=== PATIENT | male | born 1965 | race African-American/Black ===

== ENCOUNTER 2019-12-23 23:16 | Emergency (ER) | payer MEDICAID ==
[~2019-12-23] VITALS: Ht 180.3 cm; Wt 91.0 kg
[2019-12-24] MEDS ORDERED: IBUPROFEN 600MG TABLET PO STA (00:11)
[2019-12-24 00:22] LABS: BASOPHILS % 0.6 % (0.0-2.0); EOSINOPHILS % 1.3 % (0.0-5.0); HEMATOCRIT. 40.2 % (42.0-52.0); HEMOGLOBIN. 13.4 g/dL (14.0-18.0); MEAN CORPUSCULAR HEMOGLOBIN 28.7 pg (28.0-32.0); MONOCYTES % 6.3 % (2.0-8.0); NEUTROPHILS % 76.8 % (40.0-76.0); PLATELET 291 x1000/uL (130-400); RED BLOOD CELL COUNT 4.68 mill/uL (4.7-6.1); RED CELL DISTRIBUTION WIDTH 13.7 % (11.6-14.6)
[2019-12-24 00:29] LABS: CHLORIDE 108 mEq/L (98-107)
[2019-12-24 02:27] LABS: CLARITY URINE CLOUDY (CLEAR); COLOR URINE DARK YELLOW (YELLOW); KETONES URINE TRACE (NEGATIVE); LEUKOCYTE ESTERASE URINE NEGATIVE (NEGATIVE); NITRITE URINE NEGATIVE (NEGATIVE); OCCULT BLOOD URINE NEGATIVE (NEGATIVE); PROTEIN URINE 2+ (NEGATIVE); SPECIFIC GRAVITY URINE 1.029 (1.005-1.030)
[2019-12-24 07:30] VITALS: BP 138/85
== END 2019-12-24 09:50 | disposition home or self-care (01) ==
LOC: ER 23:59
DX: R42 Dizziness and giddiness (principal); M79.671 Pain in right foot; Z59.0 Homelessness; I10 Essential (primary) hypertension
CPT/HCPCS: 36415; 80048; 81003; 85025; 99283

== ENCOUNTER 2024-03-13 06:17 | Inpatient (IN) | payer MEDICAID ==
[~2024-03-13] VITALS: Ht 180.3 cm; Wt 106.6 kg
[2024-03-13 06:28] VITALS: O2SAT 96
[2024-03-13] MEDS ORDERED: SODIUM CHLORIDE 0.9% (SEPSIS BOLUS) IV ONE (10:15)
[2024-03-13 10:43] LABS: HEMOGLOBIN. 11.5 g/dL (14.0-18.0); MEAN CORPUSCULAR HGB CONC 32.9 g/dL (31.0-37.0); MEAN CORPUSCULAR VOLUME 88.3 fL (80.0-94.0); MEAN PLATELET VOLUME 6.2 fl (7.4-10.4); PLATELET 318 x1000/uL (130-400); RED BLOOD CELL COUNT 3.96 mill/uL (4.7-6.1); RED CELL DISTRIBUTION WIDTH 13.1 % (11.6-14.6); WHITE BLOOD COUNT 15.2 x1000/uL (4.5-11.0)
[2024-03-13 10:44] LABS: DIFFERENTIAL COMMENT 1
[2024-03-13 10:51] LABS: PROTHROMBIN TIME 10.9 sec (9.6-11.0)
[2024-03-13] MEDS: SODIUM CHLORIDE 0.9% 3,600 ML IV SCH (11:04)
[2024-03-13] MEDS: PIPERACILLIN/TAZO 3.375G/50ML 50 ML IV NR (11:04)
[2024-03-13] MEDS: VANCOMYCIN 1G PREMIX 200 ML IV NR (11:04)
[2024-03-13 11:10] LABS: CHLORIDE 88 mEq/L (98-107); POTASSIUM 4.6 mEq/L (3.5-5.1); SODIUM 121 mEq/L (136-145)
[2024-03-13] MEDS: MORPHINE SULFATE 4 MG/ML INJ (FOR IV/IM USE) IV ONE (11:10)
[2024-03-13 11:11] LABS: CALCIUM 8.9 mg/dL (8.7-10.4); CARBON DIOXIDE 23 mEq/L (21-32)
[2024-03-13 11:16] LABS: CREATININE 0.7 mg/dL (0.6-1.3); GLUCOSE 119 mg/dL (70-105); UREA NITROGEN BLOOD 8 mg/dL (9-23)
[2024-03-13 11:18] LABS: ALANINE AMINOTRANSFERASE 56 IU/L (10-49); ALBUMIN 3.7 g/dL (3.2-4.8); ASPARTATE AMINOTRANSFERASE 108 IU/L (<34); BILIRUBIN DIRECT 0.3 mg/dL (<=3.0); BILIRUBIN TOTAL 0.8 mg/dL (0.1-1.0); LACTIC ACID 2.6 mmol/L (0.4-2.0); PROTEIN TOTAL 6.9 g/dL (6.0-8.3)
[2024-03-13 12:40] LABS: PLATELET ESTIMATE NORMAL
[2024-03-13] MEDS: IOHEXOL-300 100 ML BOTTLE ONE (15:24)
[2024-03-13 17:17] VITALS: BP 129/90; PULSE 75; RESP 18; TEMP 37.1964
[2024-03-13] MEDS ORDERED: NALOXONE HCL 0.4MG/ML VIAL IV PRN (17:30)
[2024-03-13] MEDS: PIPERACILLIN/TAZO 3.375G/50ML 50 ML IV SCH (17:44)
[2024-03-13] MEDS: HYDROCODONE/ACETAMINOPHEN 5/325MG TABLET PO PRN (17:44)
[2024-03-13 18:00] VITALS: BP 129/90; PULSE 75; RESP 20; TEMP 36.9474; O2SAT 98
[2024-03-13 20:00] VITALS: BP 124/81; PULSE 105; RESP 18; TEMP 36.16956; O2SAT 96
[2024-03-13] MEDS: VANCOMYCIN 1.25GM/250ML IV SCH (20:28)
[2024-03-13] MEDS: MORPHINE SULFATE 2 MG/ML INJ (NOT FOR IM USE) IV PRN (20:44)
[2024-03-13 21:08] LABS: BASOPHILS % 0.3 % (0.0-2.0); EOSINOPHILS % 0.3 % (0.0-5.0); HEMATOCRIT. 31.9 % (42.0-52.0); HEMOGLOBIN. 10.6 g/dL (14.0-18.0); LYMPHOCYTES % 5.5 % (20.0-50.0); MEAN CORPUSCULAR HEMOGLOBIN 29.5 pg (28.0-32.0); MEAN CORPUSCULAR HGB CONC 33.4 g/dL (31.0-37.0); MEAN CORPUSCULAR VOLUME 88.4 fL (80.0-94.0); MEAN PLATELET VOLUME 6.6 fl (7.4-10.4); MONOCYTES % 12.7 % (2.0-8.0); NEUTROPHILS % 81.2 % (40.0-76.0); PLATELET 304 x1000/uL (130-400); RED BLOOD CELL COUNT 3.61 mill/uL (4.7-6.1); RED CELL DISTRIBUTION WIDTH 12.8 % (11.6-14.6); WHITE BLOOD COUNT 15.5 x1000/uL (4.5-11.0)
[2024-03-13 21:14] LABS: DIFFERENTIAL COMMENT 1
[2024-03-13 21:15] LABS: CHLORIDE 92 mEq/L (98-107); POTASSIUM 4.1 mEq/L (3.5-5.1); SODIUM 124 mEq/L (136-145)
[2024-03-13 21:16] LABS: CALCIUM 8.7 mg/dL (8.7-10.4); CARBON DIOXIDE 26 mEq/L (21-32)
[2024-03-13 21:21] LABS: CREATININE 0.9 mg/dL (0.6-1.3); GLUCOSE 131 mg/dL (70-105); UREA NITROGEN BLOOD 8 mg/dL (9-23)
[2024-03-14] MEDS: IOHEXOL-300 100 ML BOTTLE ONE (02:24)
[2024-03-14 04:00] VITALS: BP 151/70; PULSE 84; RESP 17; TEMP 36.114; O2SAT 92
[2024-03-14 05:54] VITALS: BP 133/80
[2024-03-14 08:00] VITALS: BP 132/73; PULSE 110; RESP 18; TEMP 37.28076; O2SAT 95
[2024-03-14] MEDS: ENOXAPARIN 30MG/0.3ML SYR SUBCUT SCH (09:05)
[2024-03-14 12:00] VITALS: BP 145/66; PULSE 107; RESP 18; TEMP 36.78072; O2SAT 97
[2024-03-14] MEDS: VANCOMYCIN 1.5GM/250ML 250 ML IV SCH (12:03)
[2024-03-14] MEDS: PANTOT AC/MIN OIL/PET HY-PHL OINT (AQUAPHOR) TOP SCH (15:49)
[2024-03-14] MEDS: CHLORHEXIDINE GLUCONATE 4% EXTERNAL USE TOP SCH (15:50)
[2024-03-14 16:00] VITALS: BP 138/74; PULSE 110; RESP 18; TEMP 36.61404; O2SAT 97
[2024-03-14 20:00] VITALS: BP 137/55; PULSE 119; RESP 25; TEMP 36.61404; O2SAT 95
[2024-03-15 04:00] VITALS: BP 126/69; PULSE 122; RESP 2; TEMP 36.6696; O2SAT 1
[2024-03-15 05:55] LABS: HEMATOCRIT 31.3 % (42.0-52.0); HEMOGLOBIN 10.4 g/dL (14.0-18.0); MEAN CORPUSCULAR HEMOGLOBIN 29.9 pg (28.0-32.0); MEAN CORPUSCULAR HGB CONC 33.2 g/dL (31.0-37.0); PLATELET 311 x1000/uL (130-400); RED BLOOD CELL COUNT 3.47 mill/uL (4.7-6.1); WHITE BLOOD COUNT 9.2 x1000/uL (4.5-11.0)
[2024-03-15 05:56] LABS: CARBON DIOXIDE 28 mEq/L (21-32); CHLORIDE 98 mEq/L (98-107); POTASSIUM 3.8 mEq/L (3.5-5.1)
[2024-03-15 06:00] LABS: CREATININE 0.8 mg/dL (0.6-1.3)
[2024-03-15 06:02] LABS: GLUCOSE 117 mg/dL (70-105); UREA NITROGEN BLOOD 8 mg/dL (9-23)
[2024-03-15 06:41] LABS: SODIUM 133 mEq/L (136-145)
[2024-03-15 08:00] VITALS: BP 153/81; PULSE 104; RESP 20; TEMP 36.61404; O2SAT 98
[2024-03-15 12:00] VITALS: BP 111/83; PULSE 108; RESP 20; TEMP 36.44736; O2SAT 98
[2024-03-15 16:00] VITALS: BP 137/77; PULSE 103; RESP 20; TEMP 36.3918; O2SAT 100
[2024-03-15] MEDS: VANCOMYCIN 1.5GM/250ML 250 ML IV SCH (17:31)
[2024-03-15 20:00] VITALS: BP 132/62; PULSE 98; RESP 18; TEMP 36.6696; O2SAT 98
[2024-03-16] VITALS: BP 126/58; PULSE 96; RESP 18; TEMP 36.78072; O2SAT 98
[2024-03-16 04:00] VITALS: BP 137/67; PULSE 96; RESP 16; TEMP 36.6696; O2SAT 96
[2024-03-16 04:08] LABS: CHLORIDE 101 mEq/L (98-107); POTASSIUM 4.1 mEq/L (3.5-5.1); SODIUM 134 mEq/L (136-145)
[2024-03-16 04:09] LABS: CARBON DIOXIDE 30 mEq/L (21-32)
[2024-03-16 04:10] LABS: CALCIUM 9.2 mg/dL (8.7-10.4)
[2024-03-16 04:14] LABS: CREATININE 0.8 mg/dL (0.6-1.3); GLUCOSE 109 mg/dL (70-105)
[2024-03-16 04:15] LABS: UREA NITROGEN BLOOD 7 mg/dL (9-23)
[2024-03-16 04:16] LABS: VANCOMYCIN TROUGH 23.5 ug/mL (5.0-10.0)
[2024-03-16 08:00] VITALS: BP 143/89; PULSE 104; RESP 20; TEMP 36.61404; O2SAT 98
[2024-03-16 12:00] VITALS: BP 156/75; PULSE 106; RESP 22; TEMP 36.78072; O2SAT 98
[2024-03-16 16:00] VITALS: BP 167/96; PULSE 102; RESP 22; TEMP 37.00296; O2SAT 94
[2024-03-16 20:00] VITALS: BP 132/73; PULSE 75; RESP 20; TEMP 35.72508; O2SAT 96
[2024-03-16] MEDS: VANCOMYCIN 2,000 MG in DEXT 5% WATER 500 ML IV SCH (21:25)
[2024-03-17] VITALS: BP 136/83; PULSE 112; RESP 19; TEMP 37.11408; O2SAT 96
[2024-03-17 04:00] VITALS: BP 138/81; PULSE 109; RESP 19; TEMP 37.11408; O2SAT 96
[2024-03-17 08:00] VITALS: BP 151/84; PULSE 101; RESP 18; TEMP 37.00296; O2SAT 95
[2024-03-17 12:00] VITALS: BP 155/85; PULSE 103; RESP 16; TEMP 36.89184; O2SAT 96
[2024-03-17 16:00] VITALS: BP 119/53; PULSE 110; RESP 20; TEMP 36.50292; O2SAT 97
[2024-03-17 20:00] VITALS: BP 138/87; PULSE 113; RESP 22; TEMP 36.44736; O2SAT 98
[2024-03-18] VITALS: BP 141/84; PULSE 116; RESP 20; TEMP 36.89184; O2SAT 97
[2024-03-18 04:00] VITALS: BP 135/94; PULSE 105; RESP 22; TEMP 36.6696; O2SAT 99
[2024-03-18 08:00] VITALS: BP 151/88; PULSE 102; RESP 20; TEMP 36.9474; O2SAT 98
[2024-03-18] MEDS: CLONIDINE 0.1MG TABLET PO PRN (18:29)
[2024-03-18] MEDS: AMLODIPINE 10MG TABLET PO SCH (18:29)
[2024-03-18 20:00] VITALS: BP 154/93; PULSE 107; RESP 20; TEMP 36.50292; O2SAT 95
[2024-03-19] VITALS: BP 119/75; PULSE 74; RESP 20; TEMP 36.50292; O2SAT 95
[2024-03-19 04:00] VITALS: BP 122/80; PULSE 101; RESP 20; TEMP 36.3918; O2SAT 94
[2024-03-19 08:00] VITALS: BP 164/83; PULSE 101; RESP 18; TEMP 36.22512; O2SAT 98
[2024-03-19 12:00] VITALS: BP 155/95; PULSE 109; RESP 18; TEMP 36.28068; O2SAT 98
[2024-03-19] MEDS ORDERED: NALOXONE HCL 0.4MG/ML VIAL IV PRN (15:30)
[2024-03-19 16:00] VITALS: BP 154/89; PULSE 109; RESP 18; TEMP 36.28068; O2SAT 98
[2024-03-19 20:00] VITALS: BP 146/107; PULSE 106; RESP 18; TEMP 36.72516; O2SAT 95
[2024-03-19] MEDS: DOXYCYCLINE HYCLATE 100MG CAPSULE PO SCH (21:15)
[2024-03-19] MEDS: HYDROCODONE/ACETAMINOPHEN 5/325MG TABLET PO PRN (21:15)
[2024-03-20] VITALS: BP 170/98; PULSE 106; RESP 18; TEMP 36.72516; O2SAT 95
[2024-03-20 04:00] VITALS: BP_SYST 123; BP_SYST 143; BP_DIAS 81; BP_DIAS 84; PULSE 102; PULSE 104; RESP 18; RESP 20; TEMP 36.3918; TEMP 36.50292; O2SAT 95; O2SAT 98
[2024-03-20 08:00] VITALS: BP 155/96; PULSE 101; RESP 19; TEMP 36.50292; O2SAT 97
[2024-03-20 12:00] VITALS: BP 146/85; PULSE 100; RESP 18; TEMP 36.89184; O2SAT 98
[2024-03-20 16:00] VITALS: BP 131/92; PULSE 108; RESP 19; TEMP 36.72516; O2SAT 97
[2024-03-20 20:00] VITALS: BP 145/77; PULSE 104; RESP 18; TEMP 37.11408; O2SAT 98
[2024-03-21] VITALS: BP 162/101; PULSE 18; RESP 18; TEMP 37.16964; O2SAT 95
[2024-03-21 08:00] VITALS: BP 166/96; PULSE 96; RESP 18; TEMP 36.55848; O2SAT 97
[2024-03-21] MEDS: FLUTICASONE PROPIONATE 50MCG/SPRAY BOTTLE BOTHNSTRLS SCH (11:32)
[2024-03-21 12:00] VITALS: BP 131/102; PULSE 102; RESP 19; TEMP 36.28068; O2SAT 98
[2024-03-21 16:00] VITALS: BP 137/94; PULSE 101; RESP 19; TEMP 36.83628; O2SAT 97
[2024-03-21] MEDS: MONTELUKAST SODIUM 10MG TABLET PO SCH (17:10)
[2024-03-21 20:00] VITALS: BP 142/90; PULSE 97; RESP 18; TEMP 36.50292; O2SAT 97
[2024-03-21] MEDS: PROMETHAZINE/DEXTROMETHORPHAN 6.25-15MG/5ML PO PRN (22:05)
[2024-03-22] VITALS: BP 158/77; PULSE 102; RESP 18; TEMP 36.61404; O2SAT 95
[2024-03-22] MEDS ORDERED: IPRATROPIUM/ALBUTEROL 0.5-3(2.5)MG/3ML NEB HHN PRN (00:15)
[2024-03-22 04:00] VITALS: BP 153/83; PULSE 99; RESP 18; TEMP 37.7808; O2SAT 100
[2024-03-22 08:00] VITALS: BP 138/83; PULSE 99; RESP 19; TEMP 36.44736; O2SAT 97
[2024-03-22 12:00] VITALS: BP 139/87; PULSE 91; RESP 20; TEMP 36.50292; O2SAT 96
[2024-03-22 16:00] VITALS: BP 127/104; PULSE 101; RESP 19; TEMP 36.55848; O2SAT 95
[2024-03-22 20:00] VITALS: BP 148/69; PULSE 103; RESP 16; TEMP 36.16956; O2SAT 99
[2024-03-23] VITALS: BP 136/70; PULSE 89; RESP 17; TEMP 36.6696; O2SAT 100
[2024-03-23 04:00] VITALS: BP 147/86; PULSE 102; RESP 19; TEMP 36.33624; O2SAT 97
[2024-03-23 08:00] VITALS: BP 145/96; PULSE 107; RESP 20; TEMP 37.00296; O2SAT 99
[2024-03-23 16:00] VITALS: BP 137/88; PULSE 110; RESP 20; TEMP 36.83628; O2SAT 97
[2024-03-23 20:00] VITALS: BP 145/92; PULSE 109; RESP 19; TEMP 36.61404; O2SAT 96
[2024-03-24] VITALS: BP 140/88; PULSE 100; RESP 19; TEMP 36.50292; O2SAT 97
[2024-03-24 04:00] VITALS: BP 112/89; PULSE 100; RESP 19; TEMP 36.3918; O2SAT 97
[2024-03-24 08:00] VITALS: BP 124/65; PULSE 105; RESP 22; O2SAT 96
[2024-03-24] MEDS: ENOXAPARIN 40MG/0.4ML SYR SUBCUT SCH (10:06)
[2024-03-24 12:00] VITALS: BP 134/93; PULSE 103; RESP 19; TEMP 36.50292; O2SAT 96
[2024-03-24 16:00] VITALS: BP 130/85; PULSE 99; RESP 18; TEMP 36.61404; O2SAT 96
[2024-03-24] MEDS ORDERED: NALOXONE HCL 0.4MG/ML VIAL IV PRN (23:00)
[2024-03-25] MEDS: HYDROCODONE/ACETAMINOPHEN 5/325MG TABLET PO PRN (02:29)
[2024-03-25 12:00] VITALS: BP 130/86; PULSE 84; RESP 18; TEMP 36.50292; O2SAT 95
[2024-03-25 16:00] VITALS: BP 135/80; PULSE 80; RESP 17; TEMP 36.61404; O2SAT 95
[2024-03-25 20:00] VITALS: BP 137/78; PULSE 108; RESP 20; TEMP 36.61404; O2SAT 100
[2024-03-26 08:00] VITALS: BP 144/79; PULSE 98; RESP 18; TEMP 36.50292; O2SAT 96
[2024-03-26 12:00] VITALS: PULSE 98; RESP 18; TEMP 36.55848; O2SAT 96
[2024-03-26 16:00] VITALS: BP 125/70; PULSE 99; RESP 17; TEMP 36.61404; O2SAT 96
[2024-03-27 08:55] VITALS: BP 132/86; PULSE 98; RESP 18; TEMP 36.3918
[2024-03-27 12:00] VITALS: BP 140/85; PULSE 99; RESP 20; TEMP 36.61404; O2SAT 98
[2024-03-27 16:00] VITALS: BP 146/95; PULSE 81; RESP 20; TEMP 36.61404; O2SAT 98
[2024-03-27 20:00] VITALS: BP 122/70; PULSE 107; RESP 19; TEMP 36.3918; O2SAT 99
[2024-03-28] VITALS: BP 129/78; PULSE 100; RESP 19; TEMP 36.3918; O2SAT 97
[2024-03-28 08:00] VITALS: BP 140/81; PULSE 83; RESP 19; TEMP 36.83628; O2SAT 97
[2024-03-28 12:00] VITALS: BP 137/74; PULSE 87; RESP 18; TEMP 36.61404; O2SAT 99
[2024-03-28 16:00] VITALS: BP 140/87; PULSE 87; RESP 18; TEMP 36.61404; O2SAT 99
[2024-03-28 20:00] VITALS: BP 125/63; PULSE 58; RESP 19; TEMP 35.66952; O2SAT 96
[2024-03-29] VITALS: BP 128/68; PULSE 62; RESP 19; TEMP 36.44736; O2SAT 97
[2024-03-29 04:00] VITALS: BP 119/74; PULSE 68; RESP 19; TEMP 36.50292; O2SAT 96
[2024-03-29 08:00] VITALS: BP 140/88; PULSE 103; RESP 19; TEMP 35.94732; O2SAT 98
[2024-03-29 12:00] VITALS: BP 147/91; PULSE 106; RESP 20; TEMP 36.55848; O2SAT 99
[2024-03-29 16:00] VITALS: BP 140/90; PULSE 105; RESP 20; TEMP 36.55848; O2SAT 95
[2024-03-29 20:00] VITALS: BP 145/80; PULSE 110; RESP 19; TEMP 35.78064; O2SAT 99
[2024-03-30] VITALS: BP 141/86; PULSE 102; RESP 19; TEMP 35.94732; O2SAT 98
[2024-03-30 04:00] VITALS: BP 138/78; PULSE 98; RESP 19; TEMP 36.22512; O2SAT 97
[2024-03-30 08:00] VITALS: BP 136/85; PULSE 103; RESP 20; TEMP 37.16964; O2SAT 97
[2024-03-30 12:00] VITALS: BP 129/85; PULSE 108; RESP 20; TEMP 37.05852; O2SAT 98
[2024-03-30 16:00] VITALS: BP 132/79; PULSE 105; RESP 20; TEMP 36.50292; O2SAT 99
[2024-03-30] MEDS: ACETAMINOPHEN 325MG TABLET PO PRN (21:15)
[2024-03-31 00:15] VITALS: PULSE 104; RESP 18
[2024-03-31 04:00] VITALS: BP 124/66; PULSE 110; RESP 20; TEMP 36.89184; O2SAT 100
[2024-03-31 08:00] VITALS: BP 131/77; PULSE 109; RESP 21; TEMP 36.114; O2SAT 98
[2024-03-31 12:00] VITALS: BP 125/90; PULSE 113; RESP 23; TEMP 36.3918
[2024-03-31 16:00] VITALS: BP 136/89; PULSE 110; RESP 22; TEMP 36.16956; O2SAT 99
[2024-03-31 20:00] VITALS: BP 117/78; PULSE 113; RESP 18; TEMP 36.44736; O2SAT 96
[2024-04-01] VITALS: BP 118/63; PULSE 112; RESP 18; TEMP 36.44736; O2SAT 97
[2024-04-01 04:00] VITALS: BP 120/81; PULSE 102; RESP 18; TEMP 36.44736; O2SAT 96
[2024-04-01 08:00] VITALS: BP 109/66; PULSE 97; RESP 18; TEMP 36.50292; O2SAT 98
[2024-04-01 12:00] VITALS: BP 115/60; PULSE 90; RESP 18; TEMP 36.50292; O2SAT 98
[2024-04-01 16:00] VITALS: BP 130/64; PULSE 50; RESP 18; TEMP 36.72516; O2SAT 90
[2024-04-01 20:00] VITALS: BP 152/93; PULSE 109; RESP 18; TEMP 36.50292; O2SAT 98
[2024-04-02] VITALS (7 sets, daily range): BP systolic 118–145; BP diastolic 62–96; PULSE 80–104; RESP 18–20; TEMP 36.3918–36.89184; O2SAT 95–100
[2024-04-03] VITALS: BP 130/61; PULSE 99; RESP 19; TEMP 36.78072; O2SAT 95
[2024-04-03 04:00] VITALS: BP 136/64; PULSE 89; RESP 19; TEMP 36.3918; O2SAT 96
[2024-04-03 08:00] VITALS: BP 148/78; PULSE 95; RESP 20; TEMP 36.55848; O2SAT 99
[2024-04-03 12:00] VITALS: BP 150/70; PULSE 97; RESP 19; TEMP 36.78072; O2SAT 99
[2024-04-03 16:00] VITALS: BP 138/69; PULSE 90; RESP 20; TEMP 36.50292; O2SAT 99
[2024-04-03 20:00] VITALS: BP 129/69; PULSE 95; RESP 18; TEMP 36.55848; O2SAT 96
[2024-04-04] VITALS: BP 146/88; PULSE 99; RESP 18; TEMP 36.55848; O2SAT 95
[2024-04-04 08:00] VITALS: BP 140/85; PULSE 96; RESP 19; TEMP 36.55848; O2SAT 97
[2024-04-04 12:00] VITALS: BP 132/86; PULSE 97; RESP 18; TEMP 36.55848; O2SAT 98
[2024-04-04 16:00] VITALS: BP 122/89; PULSE 106; RESP 19; TEMP 36.28068; O2SAT 97
[2024-04-04 20:00] VITALS: BP 124/74; PULSE 96; RESP 18; TEMP 36.61404; O2SAT 99
[2024-04-05] VITALS: BP 129/68; PULSE 92; RESP 18; TEMP 36.50292; O2SAT 95
[2024-04-05 08:00] VITALS: BP_SYST 100; BP_SYST 153; BP_DIAS 70; BP_DIAS 75; PULSE 100; RESP 18; TEMP 36.55848; O2SAT 97
[2024-04-05 12:00] VITALS: BP 136/96; PULSE 90; RESP 18; TEMP 36.55848; O2SAT 97
[2024-04-05 16:00] VITALS: BP 119/74; PULSE 99; RESP 18; TEMP 36.44736; O2SAT 98
[2024-04-05 20:00] VITALS: BP 100/60; PULSE 102; RESP 19; TEMP 36.50292; O2SAT 98
[2024-04-06] VITALS: BP 126/71; PULSE 71; RESP 18; TEMP 37.00296; O2SAT 98
[2024-04-06 04:00] VITALS: BP 132/80; PULSE 94; RESP 18; TEMP 36.33624; O2SAT 99
[2024-04-06 08:00] VITALS: BP 122/74; PULSE 101; RESP 19; TEMP 36.44736; O2SAT 98
[2024-04-06 12:00] VITALS: BP 170/98; PULSE 91; RESP 19; TEMP 36.3918; O2SAT 96
[2024-04-06 16:00] VITALS: BP 148/89; PULSE 93; RESP 20; TEMP 36.61404; O2SAT 97
[2024-04-06 20:00] VITALS: BP 128/74; PULSE 92; RESP 19; TEMP 37.89192; O2SAT 96
[2024-04-07] VITALS: BP 130/78; PULSE 88; RESP 19; TEMP 37.11408; O2SAT 97
[2024-04-07 04:00] VITALS: BP 131/68; PULSE 90; RESP 19; TEMP 37.11408; O2SAT 97
[2024-04-07 08:00] VITALS: BP 130/70; PULSE 75; RESP 18; TEMP 36.50292; O2SAT 98
[2024-04-07 12:00] VITALS: BP 120/64; PULSE 89; RESP 17; TEMP 36.3918; O2SAT 98
[2024-04-07 16:00] VITALS: BP 125/70; PULSE 80; RESP 18; TEMP 36.50292; O2SAT 99
[2024-04-07 20:00] VITALS: BP 127/80; PULSE 98; RESP 18; TEMP 37.28076; O2SAT 96
[2024-04-08] VITALS: BP_SYST 127; BP_SYST 131; BP_DIAS 80; BP_DIAS 84; PULSE 87; PULSE 98; RESP 18; TEMP 37.11408; TEMP 37.28076; O2SAT 96; O2SAT 97
[2024-04-08 04:00] VITALS: BP 128/78; PULSE 92; RESP 18; TEMP 36.61404; O2SAT 98
[2024-04-08 08:00] VITALS: BP 119/60; PULSE 99; RESP 19; TEMP 36.55848; O2SAT 94
[2024-04-08 12:00] VITALS: BP 113/58; PULSE 93; RESP 20; TEMP 36.72516; O2SAT 95
[2024-04-08 16:00] VITALS: BP 119/61; PULSE 101; RESP 20; TEMP 37.16964; O2SAT 96
[2024-04-08 20:00] VITALS: BP 115/70; PULSE 87; RESP 18; TEMP 36.28068; O2SAT 96
[2024-04-09 04:00] VITALS: BP 119/78; PULSE 82; RESP 18; TEMP 36.22512; O2SAT 100
[2024-04-09 08:00] VITALS: BP 108/62; PULSE 99; RESP 20; TEMP 36.50292; O2SAT 98
[2024-04-09 12:00] VITALS: BP 110/60; PULSE 91; RESP 20; TEMP 36.28068; O2SAT 98
[2024-04-09] MEDS: TRAMADOL 50MG TABLET PO PRN (18:10)
[2024-04-09] MEDS ORDERED: NALOXONE HCL 0.4MG/ML VIAL IV PRN (18:15)
[2024-04-09 20:00] VITALS: BP 114/72; PULSE 92; RESP 18; TEMP 36.05844; O2SAT 96
[2024-04-10 04:00] VITALS: BP 116/61; PULSE 63; RESP 18; TEMP 36.22512; O2SAT 98
[2024-04-10 12:00] VITALS: BP 109/59; PULSE 90; RESP 20; TEMP 36.61404; O2SAT 94
[2024-04-10 16:00] VITALS: BP 131/89; PULSE 80; RESP 18; TEMP 36.78072; O2SAT 98
[2024-04-10 20:00] VITALS: BP 132/71; PULSE 89; RESP 20; TEMP 36.28068; O2SAT 100
[2024-04-11 04:00] VITALS: BP 129/70; PULSE 91; RESP 20; TEMP 36.78072; O2SAT 96
[2024-04-11 07:54] VITALS: BP 116/72; PULSE 96; RESP 20; TEMP 36.78072; O2SAT 100
[2024-04-11 12:00] VITALS: BP 112/61; PULSE 91; RESP 20; TEMP 35.5584; O2SAT 99
[2024-04-11 16:00] VITALS: BP 106/52; PULSE 95; RESP 20; TEMP 36.6696; O2SAT 100
[2024-04-11 20:00] VITALS: BP 104/63; PULSE 81; RESP 18; TEMP 36.28068; O2SAT 100
[2024-04-12] VITALS: BP 109/66; PULSE 82; RESP 18; TEMP 36.22512; O2SAT 100
[2024-04-12 04:00] VITALS: BP 110/63; PULSE 80; RESP 18; TEMP 36.22512
[2024-04-12 08:00] VITALS: BP 112/62; PULSE 90; RESP 20; TEMP 35.78064; O2SAT 99
[2024-04-12 12:00] VITALS: BP 109/52; PULSE 90; RESP 20; TEMP 36.28068; O2SAT 100
[2024-04-12 16:00] VITALS: BP 112/62; PULSE 86; RESP 20; TEMP 36.22512; O2SAT 99
[2024-04-12 20:00] VITALS: BP 108/60; PULSE 91; RESP 18; TEMP 36.22512; O2SAT 100
[2024-04-13 04:00] VITALS: BP 100/66; PULSE 85; RESP 18; TEMP 36.22512; O2SAT 95
[2024-04-13 08:00] VITALS: BP 118/61; PULSE 98; RESP 20; TEMP 36.6696; O2SAT 100
[2024-04-13 12:00] VITALS: BP 107/56; PULSE 85; RESP 20; TEMP 36.114; O2SAT 99
[2024-04-13 16:00] VITALS: BP 152/77; PULSE 92; RESP 20; TEMP 36.28068; O2SAT 100
[2024-04-13] MEDS: HYDROCORTISONE 2.5% CREAM 28GM TOP SCH (21:00)
[2024-04-13] MEDS: VITAMINS A AND D OINT 5GM UDPKT TOP SCH (21:00)
[2024-04-14] VITALS: BP 104/50; PULSE 89; RESP 18; TEMP 35.89176; O2SAT 98
[2024-04-14 04:00] VITALS: BP 117/61; PULSE 91; RESP 18; TEMP 36.00288; O2SAT 98
[2024-04-14 08:00] VITALS: BP 145/98; PULSE 98; RESP 20; TEMP 36.6696; O2SAT 95
[2024-04-14 12:00] VITALS: BP 113/66; PULSE 89; RESP 18; TEMP 36.89184; O2SAT 95
[2024-04-14 16:00] VITALS: BP 126/68; PULSE 90; RESP 18; TEMP 36.44736; O2SAT 96
[2024-04-14 20:00] VITALS: BP_SYST 103; BP_SYST 113; BP_DIAS 56; BP_DIAS 57; PULSE 95; RESP 20; TEMP 36.50292; O2SAT 96
[2024-04-15] VITALS: BP 114/60; PULSE 93; RESP 20; TEMP 37.00296; O2SAT 100
[2024-04-15 08:00] VITALS: BP 92/52; PULSE 88; RESP 18; TEMP 36.6696; O2SAT 95
[2024-04-15 12:00] VITALS: BP 138/81; PULSE 89; RESP 18; TEMP 36.72516; O2SAT 95
[2024-04-15 16:00] VITALS: BP 124/65; PULSE 83; RESP 18; TEMP 36.61404; O2SAT 95
[2024-04-15 20:00] VITALS: BP 167/69; PULSE 95; RESP 18; TEMP 36.33624; O2SAT 99
[2024-04-16 04:00] VITALS: BP 129/90; PULSE 90; RESP 18; TEMP 36.22512
[2024-04-16 08:00] VITALS: BP 125/82; PULSE 101; RESP 19; TEMP 36.72516; O2SAT 99
[2024-04-16 12:00] VITALS: BP 118/59; PULSE 99; RESP 20; TEMP 36.28068; O2SAT 97
[2024-04-16 16:00] VITALS: BP 118/70; PULSE 104; RESP 20; TEMP 36.16956; O2SAT 99
[2024-04-16 20:00] VITALS: BP 124/90; PULSE 104; RESP 18; TEMP 36.33624; O2SAT 97
[2024-04-16] MEDS ORDERED: AMLO10TA80 PO (20:11)
[2024-04-16] MEDS ORDERED: ESCI-7 PO (20:11)
[2024-04-16] MEDS: ZOLPIDEM TARTRATE 5MG TABLET PO PRN (21:21)
[2024-04-16] MEDS: AMLODIPINE 10MG TABLET PO SCH (21:21)
[2024-04-17 04:00] VITALS: BP 135/89; PULSE 91; RESP 18; TEMP 36.22512; O2SAT 96
[2024-04-17 08:00] VITALS: BP 121/66; PULSE 54; RESP 20; TEMP 36.61404; O2SAT 98
[2024-04-17] MEDS: CITALOPRAM HYDROBROMIDE 10MG TABLET PO SCH (09:00)
[2024-04-17 12:00] VITALS: BP 102/52; PULSE 92; RESP 20; TEMP 36.28068; O2SAT 100
[2024-04-17 16:00] VITALS: BP 147/63; PULSE 91; RESP 20; TEMP 36.16956; O2SAT 99
[2024-04-17 20:00] VITALS: BP 114/60; PULSE 93; RESP 19; TEMP 36.05844; O2SAT 99
[2024-04-18 08:00] VITALS: BP 101/59; PULSE 78; RESP 19; TEMP 36.114; O2SAT 98
[2024-04-18 12:00] VITALS: BP 103/56; PULSE 72; RESP 20; TEMP 36.44736; O2SAT 95
[2024-04-18] MEDS: FUROSEMIDE 40MG TABLET PO SCH (12:20)
[2024-04-18] MEDS: VANCOMYCIN 1.5GM PMX (XELLIA) 300 ML IV NR (12:46)
[2024-04-18 13:32] LABS: BASOPHILS % 0.7 % (0.0-2.0); EOSINOPHILS % 8.2 % (0.0-5.0); HEMATOCRIT. 36.7 % (42.0-52.0); HEMOGLOBIN. 11.9 g/dL (14.0-18.0); LYMPHOCYTES % 33.2 % (20.0-50.0); MEAN CORPUSCULAR HEMOGLOBIN 28.1 pg (28.0-32.0); MEAN CORPUSCULAR HGB CONC 32.5 g/dL (31.0-37.0); MEAN CORPUSCULAR VOLUME 86.6 fL (80.0-94.0); MEAN PLATELET VOLUME 6.8 fl (7.4-10.4); MONOCYTES % 10.8 % (2.0-8.0); NEUTROPHILS % 47.1 % (40.0-76.0); PLATELET 377 x1000/uL (130-400); RED BLOOD CELL COUNT 4.24 mill/uL (4.7-6.1); RED CELL DISTRIBUTION WIDTH 12.8 % (11.6-14.6); WHITE BLOOD COUNT 4.7 x1000/uL (4.5-11.0)
[2024-04-18 13:56] LABS: CHLORIDE 102 mEq/L (98-107); POTASSIUM 4.4 mEq/L (3.5-5.1); SODIUM 137 mEq/L (136-145)
[2024-04-18 13:57] LABS: CALCIUM 9.6 mg/dL (8.7-10.4); CARBON DIOXIDE 29 mEq/L (21-32)
[2024-04-18 14:02] LABS: CREATININE 0.8 mg/dL (0.6-1.3); GLUCOSE 82 mg/dL (70-105); UREA NITROGEN BLOOD 12 mg/dL (9-23)
[2024-04-18 16:00] VITALS: BP 149/60; PULSE 91; RESP 20; TEMP 36.16956; O2SAT 100
[2024-04-18] MEDS: CEFTRIAXONE 2GM/50ML 50 ML IV SCH (18:40)
[2024-04-18] MEDS: VANCOMYCIN 1.5GM PMX (XELLIA) 300 ML IV SCH (19:47)
[2024-04-18 20:00] VITALS: BP 130/41; PULSE 91; RESP 18; TEMP 36.114; O2SAT 95
[2024-04-18] MEDS ORDERED: VANCOMYCIN 1GM/200ML PMX (BAXTER) IV SCH (21:00)
[2024-04-18 21:18] LABS: CHLORIDE 102 mEq/L (98-107); POTASSIUM 4.1 mEq/L (3.5-5.1); SODIUM 136 mEq/L (136-145)
[2024-04-18 21:19] LABS: CARBON DIOXIDE 27 mEq/L (21-32)
[2024-04-18 21:20] LABS: CALCIUM 9.6 mg/dL (8.7-10.4)
[2024-04-18 21:24] LABS: CREATININE 0.9 mg/dL (0.6-1.3); GLUCOSE 96 mg/dL (70-105); UREA NITROGEN BLOOD 12 mg/dL (9-23)
[2024-04-18 21:27] LABS: CREATINE KINASE 216 IU/L (46-171)
[2024-04-19] VITALS: BP 132/72; PULSE 87; RESP 18; TEMP 36.22512; O2SAT 99
[2024-04-19 04:00] VITALS: BP 133/62; PULSE 82; RESP 18; TEMP 36.44736; O2SAT 100
[2024-04-19 08:00] VITALS: BP 130/41; PULSE 91; RESP 18; TEMP 36.114; O2SAT 95
[2024-04-19 12:00] VITALS: BP 131/87; PULSE 91; RESP 18; TEMP 36.114; O2SAT 95
[2024-04-19 16:00] VITALS: BP 100/76; PULSE 85; RESP 18; TEMP 36.114; O2SAT 99
[2024-04-19 20:00] VITALS: BP 140/95; PULSE 90; RESP 18; TEMP 36.22512; O2SAT 97
[2024-04-20 03:12] LABS: CHLORIDE 104 mEq/L (98-107); POTASSIUM 4.1 mEq/L (3.5-5.1); SODIUM 136 mEq/L (136-145)
[2024-04-20 03:13] LABS: CALCIUM 9.7 mg/dL (8.7-10.4); CARBON DIOXIDE 25 mEq/L (21-32)
[2024-04-20 03:18] LABS: CREATININE 0.9 mg/dL (0.6-1.3); GLUCOSE 104 mg/dL (70-105); UREA NITROGEN BLOOD 14 mg/dL (9-23)
[2024-04-20 03:20] LABS: VANCOMYCIN TROUGH 31.6 ug/mL (5.0-10.0)
[2024-04-20 04:00] VITALS: BP 141/96; PULSE 80; RESP 18; TEMP 36.22512; O2SAT 97
[2024-04-20 08:00] VITALS: BP 132/84; PULSE 90; RESP 18; TEMP 36.6696; O2SAT 97
[2024-04-20 12:00] VITALS: BP 135/92; PULSE 90; RESP 18; TEMP 36.28068; O2SAT 97
[2024-04-20 16:00] VITALS: BP 128/82; PULSE 90; RESP 18; TEMP 36.6696; O2SAT 97
[2024-04-20 20:00] VITALS: BP 136/87; PULSE 101; RESP 19; TEMP 36.83628; O2SAT 97
[2024-04-21] VITALS: PULSE 81; RESP 18; TEMP 36.72516; O2SAT 99
[2024-04-21 04:00] VITALS: BP 135/82; PULSE 75; RESP 20; TEMP 36.61404; O2SAT 98
[2024-04-21] MEDS: VANCOMYCIN 1GM PMX (XELLIA) 200 ML IV SCH (05:01)
[2024-04-21 08:00] VITALS: BP 118/72; PULSE 87; RESP 18; TEMP 36.3918; O2SAT 100
[2024-04-21 12:00] VITALS: BP 114/62; PULSE 93; RESP 19; TEMP 36.44736; O2SAT 100
[2024-04-21 16:00] VITALS: BP 126/67; PULSE 80; RESP 19; TEMP 36.50292; O2SAT 99
[2024-04-21 20:00] VITALS: BP 136/77; PULSE 90; RESP 20; TEMP 36.44736; O2SAT 99
[2024-04-22] VITALS: BP 110/60; PULSE 88; RESP 18; TEMP 36.78072; O2SAT 96
[2024-04-22 04:00] VITALS: BP 123/60; PULSE 80; RESP 19; TEMP 36.55848; O2SAT 98
[2024-04-22 08:00] VITALS: BP 118/64; PULSE 89; RESP 20; TEMP 36.05844; O2SAT 99
[2024-04-22 12:00] VITALS: BP 115/60; PULSE 74; RESP 20; TEMP 36.05844; O2SAT 100
[2024-04-22 16:00] VITALS: BP 143/54; PULSE 76; RESP 20; TEMP 36.33624; O2SAT 99
[2024-04-22 20:00] VITALS: BP 130/97; PULSE 70; RESP 18; TEMP 36.78072; O2SAT 99
[2024-04-23] VITALS: BP 122/71; PULSE 76; RESP 18; TEMP 36.89184; O2SAT 97
[2024-04-23 03:46] LABS: CHLORIDE 103 mEq/L (98-107); SODIUM 138 mEq/L (136-145)
[2024-04-23 03:47] LABS: CARBON DIOXIDE 28 mEq/L (21-32)
[2024-04-23 03:48] LABS: CALCIUM 9.6 mg/dL (8.7-10.4)
[2024-04-23 03:52] LABS: CREATININE 0.9 mg/dL (0.6-1.3); GLUCOSE 96 mg/dL (70-105); UREA NITROGEN BLOOD 13 mg/dL (9-23)
[2024-04-23 08:00] VITALS: BP 142/58; PULSE 73; RESP 20; TEMP 36.72516; O2SAT 100
[2024-04-23 12:00] VITALS: BP 141/77; PULSE 77; RESP 20; TEMP 36.6696; O2SAT 100
[2024-04-23 16:00] VITALS: BP 149/81; PULSE 80; RESP 20; TEMP 36.61404; O2SAT 99
[2024-04-23] MEDS: VANCOMYCIN 1.25GM PMX (XELLIA) 250 ML IV SCH (17:11)
[2024-04-23 20:00] VITALS: BP 134/89; PULSE 87; RESP 19; TEMP 36.44736; O2SAT 96
[2024-04-24 04:00] VITALS: BP 143/58; PULSE 88; RESP 19; TEMP 36.50292; O2SAT 98
[2024-04-24 08:00] VITALS: BP 129/69; PULSE 87; RESP 19; TEMP 36.114; O2SAT 96
[2024-04-24 12:00] VITALS: BP 129/69; PULSE 87; RESP 19; TEMP 36.114; O2SAT 96
[2024-04-24 16:28] VITALS: BP 134/73; PULSE 90; RESP 20; TEMP 36.6696; O2SAT 99
[2024-04-24 20:00] VITALS: BP 115/70; PULSE 70; RESP 19; TEMP 36.55848; O2SAT 98
[2024-04-25] VITALS: BP 109/66; PULSE 69; RESP 19; TEMP 36.50292; O2SAT 97
[2024-04-25 04:00] VITALS: BP 115/77; PULSE 70; RESP 18; TEMP 36.3918; O2SAT 97
[2024-04-25 08:00] VITALS: BP 115/70; PULSE 70; RESP 19; TEMP 36.55848; O2SAT 98
[2024-04-25 12:00] VITALS: BP 115/70; PULSE 70; RESP 19; TEMP 36.55848; O2SAT 98
[2024-04-25 16:00] VITALS: BP 115/70; PULSE 70; RESP 19; TEMP 36.55848; O2SAT 98
[2024-04-25 20:00] VITALS: BP 150/90; PULSE 84; RESP 18; TEMP 36.33624; O2SAT 96
[2024-04-26] VITALS: BP 120/55; PULSE 86; RESP 18; TEMP 36.114; O2SAT 95
[2024-04-26 04:00] VITALS: BP 124/61; PULSE 85; RESP 18; TEMP 36.22512; O2SAT 99
[2024-04-26 08:00] VITALS: BP 160/79; PULSE 93; RESP 20; TEMP 36.50292; O2SAT 96
[2024-04-26] MEDS: LACTOBACILLUS GG CAPSULE PO SCH (08:28)
[2024-04-26 12:00] VITALS: BP 111/63; PULSE 64; RESP 20; TEMP 36.16956; O2SAT 100
[2024-04-26 16:00] VITALS: BP 132/98; PULSE 78; RESP 20; TEMP 36.44736; O2SAT 97
[2024-04-27] VITALS: BP 112/63; PULSE 79; RESP 18; TEMP 36.22512
[2024-04-27 04:00] VITALS: BP 118/62; PULSE 85; RESP 20; TEMP 36.33624
[2024-04-27 08:00] VITALS: BP 116/64; PULSE 87; RESP 20; TEMP 36.16956; O2SAT 97
[2024-04-27 12:00] VITALS: BP 119/69; PULSE 74; RESP 20; TEMP 36.16956; O2SAT 99
[2024-04-27 16:00] VITALS: BP 129/63; PULSE 83; RESP 20; TEMP 36.22512; O2SAT 100
[2024-04-27 20:00] VITALS: BP 142/90; PULSE 93; RESP 18; TEMP 36.3918; O2SAT 95
[2024-04-28] VITALS: BP 145/94; PULSE 83; RESP 18; TEMP 36.114
[2024-04-28 04:00] VITALS: BP 116/56; PULSE 67; RESP 18; TEMP 36.22512; O2SAT 96
[2024-04-28 08:00] VITALS: BP 113/57; PULSE 85; RESP 18; TEMP 36.28068; O2SAT 99
[2024-04-28 12:00] VITALS: BP 135/63; PULSE 79; RESP 18; TEMP 36.44736; O2SAT 97
[2024-04-28 16:00] VITALS: BP 132/90; PULSE 83; RESP 18; TEMP 36.50292; O2SAT 98
[2024-04-28 20:41] VITALS: BP 123/94; PULSE 88; RESP 18; TEMP 36.89184; O2SAT 97
[2024-04-29] VITALS: BP 105/54; PULSE 83; RESP 18; TEMP 36.50292; O2SAT 95
[2024-04-29 04:00] VITALS: BP 138/94; PULSE 59; RESP 18; TEMP 36.22512; O2SAT 97
[2024-04-29 12:00] VITALS: BP 127/71; PULSE 78; RESP 18; TEMP 36.44736; O2SAT 96
[2024-04-29 16:00] VITALS: BP 146/88; PULSE 90; RESP 18; TEMP 36.114; O2SAT 96
[2024-04-29 20:00] VITALS: BP 110/60; PULSE 92; RESP 18; TEMP 36.6696; O2SAT 100
[2024-04-30 04:00] VITALS: BP 129/65; PULSE 79; RESP 18; TEMP 36.28068; O2SAT 98
[2024-04-30 06:53] LABS: CALCIUM 9.8 mg/dL (8.7-10.4); CHLORIDE 104 mEq/L (98-107); POTASSIUM 4.3 mEq/L (3.5-5.1); SODIUM 139 mEq/L (136-145)
[2024-04-30 06:54] LABS: CARBON DIOXIDE 27 mEq/L (21-32)
[2024-04-30 06:59] LABS: CREATININE 0.9 mg/dL (0.6-1.3); GLUCOSE 111 mg/dL (70-105); UREA NITROGEN BLOOD 19 mg/dL (9-23)
[2024-04-30 08:13] VITALS: BP 109/49; PULSE 80; RESP 19; TEMP 36.22512; O2SAT 96
[2024-04-30 12:00] VITALS: BP 124/82; PULSE 88; RESP 18; TEMP 36.05844; O2SAT 95
[2024-04-30 16:00] VITALS: BP 155/96; PULSE 88; RESP 18; TEMP 36.22512; O2SAT 96
[2024-04-30 20:00] VITALS: BP 116/83; PULSE 83; RESP 18; TEMP 36.28068; O2SAT 99
[2024-05-01] VITALS: BP 120/54; PULSE 88; RESP 20; TEMP 36.44736; O2SAT 98
[2024-05-01 04:00] VITALS: BP 115/55; PULSE 83; RESP 19; TEMP 36.61404; O2SAT 97
[2024-05-01 08:00] VITALS: BP 102/72; PULSE 96; RESP 20; TEMP 36.22512; O2SAT 100
[2024-05-01 16:00] VITALS: BP 134/85; PULSE 88; RESP 20; TEMP 36.16956; O2SAT 97
[2024-05-01 20:00] VITALS: BP 140/90; PULSE 91; RESP 18; TEMP 36.72516; O2SAT 95
[2024-05-02] VITALS: BP 124/66; PULSE 93; RESP 18; TEMP 36.72516; O2SAT 100
[2024-05-02 04:00] VITALS: BP 130/56; PULSE 90; RESP 18; TEMP 36.50292; O2SAT 96
[2024-05-02 08:00] VITALS: BP 140/93; PULSE 84; RESP 18; TEMP 36.22512; O2SAT 100
[2024-05-02 12:00] VITALS: BP 129/89; PULSE 94; RESP 18; TEMP 36.44736; O2SAT 100
[2024-05-02 16:00] VITALS: BP 128/86; PULSE 84; RESP 18; TEMP 36.55848; O2SAT 97
[2024-05-02 20:00] VITALS: BP 136/90; RESP 18; TEMP 36.72516; O2SAT 97
[2024-05-03] VITALS: BP 145/83; PULSE 98; RESP 18; TEMP 36.28068; O2SAT 98
[2024-05-03 04:00] VITALS: BP 136/97; PULSE 92; RESP 18; TEMP 36.28068; O2SAT 96
[2024-05-03 08:00] VITALS: BP 106/68; PULSE 84; RESP 20; TEMP 36.22512; O2SAT 100
[2024-05-03 16:00] VITALS: BP 119/68; PULSE 100; RESP 20; TEMP 36.16956; O2SAT 99
[2024-05-03 20:00] VITALS: BP 126/85; PULSE 77; RESP 17; TEMP 36.44736; O2SAT 100
[2024-05-04] VITALS (7 sets, daily range): BP systolic 118–149; BP diastolic 68–95; PULSE 86–88; RESP 18–20; TEMP 36.05844–36.72516; O2SAT 96–100
[2024-05-05] VITALS: BP 145/88; PULSE 91; RESP 20; TEMP 36.55848; O2SAT 98
[2024-05-05 04:07] VITALS: BP 155/96; PULSE 81; RESP 20; TEMP 36.44736; O2SAT 97
[2024-05-05 08:00] VITALS: BP 139/68; PULSE 80; RESP 19; TEMP 36.3918; O2SAT 98
[2024-05-05 12:00] VITALS: BP 115/58; PULSE 89; RESP 18; TEMP 36.44736; O2SAT 98
[2024-05-05 16:00] VITALS: BP 130/93; PULSE 83; RESP 18; TEMP 36.61404; O2SAT 98
[2024-05-05 20:00] VITALS: BP 135/96; PULSE 89; RESP 18; TEMP 32.83596; O2SAT 96
[2024-05-06] VITALS: BP 115/52; PULSE 89; RESP 18; TEMP 36.61404; O2SAT 98
[2024-05-06 04:00] VITALS: BP 121/75; PULSE 76; RESP 18; TEMP 36.55848; O2SAT 96
[2024-05-06 04:25] LABS: CHLORIDE 105 mEq/L (98-107); POTASSIUM 4.1 mEq/L (3.5-5.1); SODIUM 138 mEq/L (136-145)
[2024-05-06 04:26] LABS: CALCIUM 9.5 mg/dL (8.7-10.4); CARBON DIOXIDE 29 mEq/L (21-32)
[2024-05-06 04:31] LABS: CREATININE 0.8 mg/dL (0.6-1.3); GLUCOSE 102 mg/dL (70-105); UREA NITROGEN BLOOD 15 mg/dL (9-23)
[2024-05-06 08:00] VITALS: BP 107/59; PULSE 94; RESP 17; TEMP 36.6696; O2SAT 97
[2024-05-06 12:00] VITALS: BP_SYST 123; BP_SYST 149; BP_DIAS 71; BP_DIAS 90; PULSE 72; PULSE 80; RESP 18; TEMP 36.28068; TEMP 36.50292; O2SAT 98
[2024-05-06 16:00] VITALS: BP 115/66; PULSE 81; RESP 18; TEMP 36.3918; O2SAT 100
[2024-05-06 20:00] VITALS: BP 131/74; PULSE 89; RESP 18; TEMP 36.72516; O2SAT 97
[2024-05-07 04:00] VITALS: BP 117/62; PULSE 74; RESP 18; TEMP 36.3918; O2SAT 96
[2024-05-07 07:56] VITALS: BP 122/69; PULSE 79; RESP 18; TEMP 36.22512; O2SAT 100
[2024-05-07 12:00] VITALS: BP 116/69; PULSE 83; RESP 20; TEMP 36.3918; O2SAT 100
[2024-05-07 16:00] VITALS: BP 156/79; PULSE 87; RESP 20; TEMP 36.28068; O2SAT 98
[2024-05-07 20:00] VITALS: BP 96/75; PULSE 80; RESP 18; TEMP 36.3918; O2SAT 100
[2024-05-08] VITALS: BP 123/98; PULSE 96; RESP 18; TEMP 36.05844; O2SAT 100
[2024-05-08 04:00] VITALS: BP 155/94; PULSE 74; RESP 18; TEMP 36.22512; O2SAT 98
[2024-05-08 08:00] VITALS: BP 119/67; PULSE 81; RESP 20; TEMP 36.16956; O2SAT 100
[2024-05-08 12:00] VITALS: BP 115/59; PULSE 76; RESP 20; TEMP 36.16956; O2SAT 100
[2024-05-08 16:00] VITALS: BP 108/71; PULSE 81; RESP 20; TEMP 36.114; O2SAT 100
[2024-05-08 20:00] VITALS: BP 141/66; PULSE 82; RESP 18; TEMP 36.3918; O2SAT 99
[2024-05-09] VITALS: BP 144/90; PULSE 84; RESP 18; TEMP 35.39172; O2SAT 98
[2024-05-09 04:00] VITALS: BP 123/72; PULSE 85; RESP 16; TEMP 35.61396; O2SAT 98
[2024-05-09 08:00] VITALS: BP 108/67; PULSE 79; RESP 20; TEMP 36.22512; O2SAT 99
[2024-05-09 12:00] VITALS: BP 126/76; PULSE 100; RESP 20; TEMP 36.16956; O2SAT 99
[2024-05-09 16:00] VITALS: BP 101/59; PULSE 82; RESP 20; TEMP 36.22512; O2SAT 99
[2024-05-09 20:00] VITALS: BP 122/79; PULSE 86; RESP 19; TEMP 36.83628; O2SAT 97
[2024-05-10] VITALS: BP 128/80; PULSE 78; RESP 19; TEMP 36.72516; O2SAT 98
[2024-05-10 04:00] VITALS: BP 117/56; PULSE 79; RESP 19; TEMP 37.00296; O2SAT 94
[2024-05-10 08:00] VITALS: BP 149/86; PULSE 85; RESP 20; TEMP 36.114; O2SAT 99
[2024-05-10 12:00] VITALS: BP 107/57; PULSE 84; RESP 20; TEMP 36.05844; O2SAT 98
[2024-05-10 16:00] VITALS: BP 165/102; PULSE 83; RESP 20; TEMP 36.16956; O2SAT 98
[2024-05-10 20:00] VITALS: BP 150/83; PULSE 50; RESP 18; TEMP 36.16956; O2SAT 98
[2024-05-11] VITALS: BP 145/97; PULSE 84; RESP 18; TEMP 36.16956; O2SAT 95
[2024-05-11 08:53] VITALS: BP 134/82; PULSE 76; RESP 18; TEMP 36.33624; O2SAT 100
[2024-05-11 12:00] VITALS: BP 112/67; PULSE 91; RESP 18; TEMP 36.3918; O2SAT 96
[2024-05-11 16:00] VITALS: BP 110/57; PULSE 76; RESP 18; TEMP 36.3918; O2SAT 98
[2024-05-11 20:00] VITALS: BP 106/68; PULSE 85; RESP 19; TEMP 36.3918; O2SAT 96
[2024-05-11] MEDS: VANCOMYCIN 1.25GM PMX (XELLIA) 250 ML IV SCH (23:50)
[2024-05-12] VITALS: BP 113/58; PULSE 81; RESP 19; TEMP 36.44736; O2SAT 95
[2024-05-12 04:00] VITALS: BP 110/60; PULSE 78; RESP 18; TEMP 36.55848; O2SAT 96
[2024-05-12 08:00] VITALS: BP 115/53; PULSE 82; RESP 19; TEMP 36.28068; O2SAT 98
[2024-05-12 12:00] VITALS: BP 110/57; PULSE 70; RESP 18; TEMP 36.50292; O2SAT 97
[2024-05-12 16:00] VITALS: BP 109/60; PULSE 78; RESP 18; TEMP 36.3918; O2SAT 99
[2024-05-12 20:00] VITALS: BP 114/66; PULSE 82; RESP 19; TEMP 36.72516; O2SAT 97
[2024-05-13] VITALS: BP 119/68; PULSE 88; RESP 19; TEMP 36.61404; O2SAT 98
[2024-05-13 04:00] VITALS: BP 121/70; PULSE 92; RESP 19; TEMP 37.05852; O2SAT 97
[2024-05-13 08:00] VITALS: BP 156/90; PULSE 78; RESP 19; TEMP 36.28068; O2SAT 100
[2024-05-13 08:53] LABS: CARBON DIOXIDE 28 mEq/L (21-32); CHLORIDE 102 mEq/L (98-107); POTASSIUM 4.4 mEq/L (3.5-5.1); SODIUM 137 mEq/L (136-145)
[2024-05-13 08:58] LABS: CREATININE 0.9 mg/dL (0.6-1.3)
[2024-05-13 08:59] LABS: GLUCOSE 93 mg/dL (70-105); UREA NITROGEN BLOOD 25 mg/dL (9-23)
[2024-05-13 12:00] VITALS: BP_SYST 129; BP_SYST 142; BP_DIAS 66; BP_DIAS 82; PULSE 74; RESP 18; TEMP 36.6696; O2SAT 100
[2024-05-13 16:00] VITALS: BP 117/58; PULSE 72; RESP 20; TEMP 36.114; O2SAT 100
[2024-05-13 20:00] VITALS: BP 101/61; PULSE 90; RESP 19; TEMP 36.55848; O2SAT 98
[2024-05-14] VITALS: BP 140/96; PULSE 87; RESP 19; TEMP 37.00296; O2SAT 98
[2024-05-14 08:00] VITALS: BP 116/55; PULSE 77; RESP 20; TEMP 36.6696; O2SAT 100
[2024-05-14 12:11] VITALS: BP 165/91; PULSE 85; RESP 20; TEMP 36.6696; O2SAT 99
[2024-05-14 16:30] VITALS: BP 99/51; PULSE 82; RESP 20; TEMP 36.05844; O2SAT 100
[2024-05-14 20:00] VITALS: BP 127/110; PULSE 84; RESP 20; TEMP 36.83628; O2SAT 97
[2024-05-15] VITALS: BP 135/79; PULSE 88; RESP 19; TEMP 36.6696; O2SAT 97
[2024-05-15 04:00] VITALS: BP 109/62; PULSE 78; RESP 20; TEMP 36.44736; O2SAT 96
[2024-05-15 08:00] VITALS: BP 129/78; PULSE 87; RESP 18; TEMP 36.16956; O2SAT 97
[2024-05-15 12:00] VITALS: BP 120/64; PULSE 76; RESP 18; TEMP 36.3918; O2SAT 97
[2024-05-15 16:00] VITALS: BP 115/63; PULSE 82; RESP 20; TEMP 36.33624; O2SAT 100
[2024-05-15 20:00] VITALS: BP 104/59; PULSE 84; RESP 18; TEMP 36.55848; O2SAT 98
[2024-05-16] VITALS: PULSE 89; RESP 18; TEMP 36.3918; O2SAT 99
[2024-05-16 04:00] VITALS: BP 116/92; PULSE 82; RESP 18; TEMP 36.3918; O2SAT 96
[2024-05-16 08:00] VITALS: BP 145/94; PULSE 80; RESP 18; TEMP 36.33624; O2SAT 97
[2024-05-16 20:00] VITALS: BP 129/96; PULSE 81; RESP 19; TEMP 36.05844; O2SAT 98
[2024-05-17] VITALS: BP 113/68; PULSE 97; RESP 19; TEMP 36.22512; O2SAT 99
[2024-05-17 04:00] VITALS: BP 121/62; PULSE 84; RESP 19; TEMP 36.50292; O2SAT 97
[2024-05-17 08:00] VITALS: BP 104/70; PULSE 70; RESP 19; TEMP 36.61404; O2SAT 99
[2024-05-17] MEDS ORDERED: VANCOMYCIN 1.25GM/250ML 250 ML IV SCH (09:00)
[2024-05-17] MEDS: LINEZOLID 600MG TABLET PO SCH (11:00)
[2024-05-17] MEDS: LEVOFLOXACIN 250MG TABLET PO SCH (11:05)
[2024-05-17 11:54] VITALS: BP 133/79; PULSE 60; RESP 20; TEMP 36.61404; O2SAT 95
[2024-05-17 16:00] VITALS: BP 130/84; PULSE 92; RESP 18; TEMP 36.61404; O2SAT 96
[2024-05-17 20:00] VITALS: BP 144/89; PULSE 88; RESP 18; TEMP 36.6696; O2SAT 97
[2024-05-18] VITALS: BP 136/97; PULSE 129; RESP 18; TEMP 36.3918; O2SAT 95
[2024-05-18 04:00] VITALS: PULSE 67; RESP 18; TEMP 36.44736; O2SAT 100
[2024-05-18 08:00] VITALS: BP 134/88; PULSE 77; RESP 20; TEMP 36.22512; O2SAT 99
[2024-05-18 12:00] VITALS: BP 135/79; PULSE 87; RESP 20; TEMP 36.22512; O2SAT 100
[2024-05-18 16:00] VITALS: BP 119/72; PULSE 85; RESP 20; TEMP 36.22512; O2SAT 100
[2024-05-18 20:00] VITALS: BP 132/91; PULSE 86; RESP 18; TEMP 36.22512; O2SAT 96
[2024-05-19] VITALS: BP_SYST 143; BP_DIAS 105; BP_DIAS 85; PULSE 74; RESP 18; TEMP 36.114; O2SAT 97
[2024-05-19 08:00] VITALS: BP 109/63; PULSE 83; RESP 19; TEMP 36.72516; O2SAT 99
[2024-05-19 12:00] VITALS: BP 108/67; PULSE 81; RESP 19; TEMP 37.2252; O2SAT 99
[2024-05-19 16:00] VITALS: BP 109/69; PULSE 72; RESP 20; TEMP 36.44736; O2SAT 98
[2024-05-19 20:00] VITALS: BP 141/101; PULSE 91; RESP 18; TEMP 36.114; O2SAT 98
[2024-05-20] VITALS: BP 139/82; PULSE 89; RESP 18; TEMP 36.33624; O2SAT 100
[2024-05-20 04:00] VITALS: BP 107/62; PULSE 74; RESP 18; TEMP 36.22512
[2024-05-21] VITALS: BP 144/97; PULSE 93; RESP 18; TEMP 36.33624
[2024-05-21 08:00] VITALS: BP 127/53; PULSE 80; RESP 20; TEMP 36.6696; O2SAT 100
[2024-05-21 12:00] VITALS: BP 144/88; PULSE 87; RESP 20; TEMP 36.6696; O2SAT 100
[2024-05-21 16:00] VITALS: BP 108/63; PULSE 91; RESP 20; TEMP 36.22512; O2SAT 100
[2024-05-21 20:00] VITALS: BP 138/89; PULSE 86; RESP 18; TEMP 36.6696; O2SAT 97
[2024-05-22] VITALS: BP 148/94; PULSE 89; RESP 18; TEMP 36.61404; O2SAT 98
[2024-05-22 04:30] VITALS: BP 138/65; PULSE 85; RESP 16; TEMP 36.6696; O2SAT 98
[2024-05-22 08:00] VITALS: BP 106/63; PULSE 80; RESP 20; TEMP 35.72508; O2SAT 98
[2024-05-22 12:00] VITALS: BP 134/88; PULSE 81; RESP 20; TEMP 36.50292; O2SAT 97
[2024-05-22 16:00] VITALS: BP 118/61; PULSE 88; RESP 20; TEMP 36.61404; O2SAT 99
[2024-05-22 20:00] VITALS: BP 132/89; PULSE 81; RESP 18; TEMP 36.50292; O2SAT 99
[2024-05-23] VITALS: BP 119/70; PULSE 88; RESP 18; TEMP 36.55848; O2SAT 94
[2024-05-23 04:00] VITALS: BP 142/94; PULSE 83; RESP 18; TEMP 36.61404; O2SAT 94
[2024-05-23 08:00] VITALS: BP 129/81; PULSE 77; RESP 18; TEMP 36.22512; O2SAT 98
[2024-05-23 16:00] VITALS: BP 125/64; PULSE 81; RESP 18; TEMP 36.33624; O2SAT 100
[2024-05-23 20:00] VITALS: BP 117/83; PULSE 94; RESP 18; TEMP 36.72516; O2SAT 98
[2024-05-24] VITALS: BP 118/62; PULSE 96; RESP 18; TEMP 36.3918; O2SAT 95
[2024-05-24 04:00] VITALS: BP 134/74; PULSE 65; RESP 17; TEMP 36.61404; O2SAT 96
[2024-05-24 08:00] VITALS: BP 98/65; PULSE 95; RESP 19; TEMP 36.61404; O2SAT 96
[2024-05-24 12:00] VITALS: BP 109/61; PULSE 93; RESP 20; TEMP 36.72516; O2SAT 95
[2024-05-24 16:00] VITALS: BP 131/74; PULSE 117; RESP 19; TEMP 38.50308; O2SAT 95
[2024-05-24 20:00] VITALS: BP 127/100; PULSE 60; RESP 19; TEMP 36.55848; O2SAT 95
[2024-05-25] VITALS: BP 150/105; PULSE 70; RESP 18; TEMP 36.00288; O2SAT 97
[2024-05-25 04:00] VITALS: BP 114/73; PULSE 99; RESP 19; TEMP 36.28068; O2SAT 99
[2024-05-25 08:00] VITALS: BP 120/63; PULSE 94; RESP 20; TEMP 36.61404; O2SAT 95
[2024-05-25] MEDS ORDERED: CLONIDINE 0.1MG TABLET PO PRN (08:30)
[2024-05-25] MEDS: AMLODIPINE 5MG TABLET PO SCH (09:00)
[2024-05-25 12:00] VITALS: BP 110/66; PULSE 101; RESP 20; TEMP 36.61404; O2SAT 97
[2024-05-25 16:00] VITALS: BP 122/77; PULSE 102; RESP 20; TEMP 36.50292; O2SAT 97
[2024-05-26] VITALS: BP 129/87; PULSE 87; RESP 18; TEMP 36.28068
[2024-05-26 07:10] VITALS: BP 108/69; PULSE 105; RESP 18; TEMP 36.3918; O2SAT 94
[2024-05-26 08:00] VITALS: BP 140/50; PULSE 61; RESP 20; TEMP 36.6696; O2SAT 99
[2024-05-26 12:00] VITALS: BP 111/68; PULSE 98; RESP 20; TEMP 36.6696; O2SAT 99
[2024-05-26 16:00] VITALS: BP 137/81; PULSE 92; RESP 18; TEMP 36.50292; O2SAT 97
[2024-05-26 20:00] VITALS: BP 148/85; PULSE 103; RESP 18; TEMP 36.22512; O2SAT 99
[2024-05-27] VITALS: BP 106/63; PULSE 97; RESP 18; TEMP 36.44736; O2SAT 99
[2024-05-27 04:00] VITALS: BP 88/57; PULSE 91; RESP 19; TEMP 36.55848; O2SAT 99
[2024-05-27 08:00] VITALS: BP 116/59; PULSE 87; RESP 18; TEMP 36.72516; O2SAT 97
[2024-05-27 12:00] VITALS: BP 116/67; PULSE 96; RESP 19; TEMP 36.61404; O2SAT 99
[2024-05-27 16:00] VITALS: BP 161/90; PULSE 101; RESP 19; TEMP 36.61404; O2SAT 99
[2024-05-27 20:00] VITALS: BP 127/87; PULSE 103; RESP 19; TEMP 36.22512; O2SAT 98
[2024-05-28] VITALS (7 sets, daily range): BP systolic 106–152; BP diastolic 51–88; PULSE 76–102; RESP 19–20; TEMP 36.22512–37.05852; O2SAT 97–100
[2024-05-29 04:00] VITALS: BP 151/92; PULSE 91; RESP 20; TEMP 36.44736; O2SAT 99
[2024-05-29 08:00] VITALS: BP 123/77; PULSE 90; RESP 20; TEMP 36.72516; O2SAT 94
[2024-05-29 12:00] VITALS: BP 107/57; PULSE 93; RESP 20; TEMP 36.61404; O2SAT 100
[2024-05-29 16:00] VITALS: BP 134/99; PULSE 106; RESP 20; TEMP 36.61404; O2SAT 96
[2024-05-29 20:00] VITALS: BP 113/84; PULSE 97; RESP 20; TEMP 36.6696; O2SAT 98
[2024-05-30] VITALS: BP 109/62; PULSE 97; RESP 20; TEMP 36.16956; O2SAT 98
[2024-05-30 04:00] VITALS: BP 141/96; PULSE 90; RESP 18; TEMP 36.55848; O2SAT 98
[2024-05-30 08:00] VITALS: BP 106/57; PULSE 87; RESP 18; TEMP 36.50292; O2SAT 99
[2024-05-30 12:00] VITALS: BP 142/96; PULSE 103; RESP 17; TEMP 36.61404; O2SAT 98
[2024-05-30 16:00] VITALS: BP 123/83; PULSE 98; RESP 18; TEMP 36.22512; O2SAT 99
[2024-05-31] VITALS: BP 151/94; PULSE 92; RESP 19; TEMP 36.44736; O2SAT 100
[2024-05-31 04:00] VITALS: BP 107/66; PULSE 89; RESP 20; TEMP 36.55848; O2SAT 98
[2024-05-31 08:00] VITALS: BP 91/56; PULSE 101; RESP 18; TEMP 36.83628; O2SAT 100
[2024-05-31 12:00] VITALS: BP 127/58; PULSE 92; RESP 19; TEMP 36.61404; O2SAT 100
[2024-05-31 16:00] VITALS: BP 128/73; PULSE 101; RESP 18; TEMP 36.61404; O2SAT 99
[2024-05-31 20:00] VITALS: BP 144/98; PULSE 100; RESP 20; TEMP 36.61404; O2SAT 98
[2024-06-01] VITALS: BP 115/68; PULSE 97; RESP 20; TEMP 36.61404; O2SAT 100
[2024-06-01 04:00] VITALS: BP 118/64; PULSE 95; RESP 19; TEMP 36.6696; O2SAT 99
[2024-06-01 08:00] VITALS: BP 103/55; PULSE 97; RESP 20; TEMP 36.3918; O2SAT 98
[2024-06-01 12:00] VITALS: BP 110/58; PULSE 99; RESP 20; TEMP 36.50292; O2SAT 99
[2024-06-01 16:00] VITALS: BP 151/88; PULSE 84; RESP 19; TEMP 36.3918; O2SAT 98
[2024-06-02] VITALS: BP 140/90; PULSE 91; RESP 18; TEMP 36.6696; O2SAT 96
[2024-06-02 04:00] VITALS: BP 109/62; PULSE 87; RESP 18; TEMP 36.50292; O2SAT 95
[2024-06-03 08:00] VITALS: BP 139/92; PULSE 93; RESP 18; TEMP 35.2806; O2SAT 100
[2024-06-03 12:00] VITALS: BP 128/78; PULSE 88; RESP 20; TEMP 36.6696; O2SAT 98
[2024-06-03 16:00] VITALS: BP 132/80; PULSE 90; RESP 18; TEMP 36.114; O2SAT 99
[2024-06-03 20:00] VITALS: BP 117/66; PULSE 52; RESP 18; TEMP 36.78072; O2SAT 97
[2024-06-04] VITALS: BP 143/82; PULSE 50; RESP 18; TEMP 36.3918; O2SAT 97
[2024-06-04 08:00] VITALS: BP 140/70; PULSE 78; RESP 20; TEMP 36.78072; O2SAT 98
[2024-06-04 12:00] VITALS: BP 132/66; PULSE 70; RESP 20; TEMP 36.55848; O2SAT 99
[2024-06-04 16:00] VITALS: BP 140/74; PULSE 80; RESP 20; TEMP 36.6696; TEMP 36.66960; O2SAT 98
== END 2024-06-04 17:30 | DRG 720 ==
LOC: ER 06:17 → 8WST 11:52 → EDBEDREQTM 12:02 → EDBEDREQ 12:02 → 6EST 03-18 10:48 → 6WST 04-08 19:06 → 4WST 05-26 14:10
PROVIDERS: ADMIT Internal Medicine; ATTEND Internal Medicine
DX: A41.9 Sepsis, unspecified organism (principal); I11.0 Hypertensive heart disease with heart failure; M00.852 Arthritis due to other bacteria, left hip; I50.9 Heart failure, unspecified; E87.1 Hypo-osmolality and hyponatremia; L89.890 Pressure ulcer of other site, unstageable; L03.116 Cellulitis of left lower limb; M16.12 Unilateral primary osteoarthritis, left hip; L85.3 Xerosis cutis; E66.01 Morbid (severe) obesity due to excess calories; E86.1 Hypovolemia; L84 Corns and callosities; R65.20 Severe sepsis without septic shock; Z68.41 Body mass index [BMI] 40.0-44.9, adult; Z59.00 Homelessness unspecified; Z99.3 Dependence on wheelchair
CPT/HCPCS: 36415; 71045; 72100; 72170; 73701; 80048; 80076; 80202; 82550; 82962; 83036; 83605; 84145; 85025; 85027; 85651; 86850; 86900; 93005; 93970; 97110; 97162; 97166; 97168; 97530; 97535; 99291; A6261; C1893; J0696; J1650; J2270; J2543; J3370; J7060; Q9967

== ENCOUNTER 2025-04-27 11:10 | Inpatient (IN) | payer MEDICAID ==
[~2025-04-27] VITALS: Ht 165.1 cm; Wt 137.1 kg
[~2025-04-27 11:10] MED LIST: AMLO10TA80 PO; ESCI-7 PO
[2025-04-27 11:13] VITALS: O2SAT 99
[2025-04-27 13:16] LABS: BASOPHILS % 0.5 % (0.0-2.0); EOSINOPHILS % 3.6 % (0.0-5.0); HEMATOCRIT. 35.0 % (42.0-52.0); HEMOGLOBIN. 11.4 g/dL (14.0-18.0); LYMPHOCYTES % 10.7 % (20.0-50.0); MEAN PLATELET VOLUME 6.7 fl (7.4-10.4); MONOCYTES % 8.6 % (2.0-8.0); NEUTROPHILS % 76.6 % (40.0-76.0); PLATELET 306 x1000/uL (130-400); RED BLOOD CELL COUNT 3.88 mill/uL (4.7-6.1); RED CELL DISTRIBUTION WIDTH 14.1 % (11.6-14.6)
[2025-04-27 13:28] LABS: CREATININE 0.7 mg/dL (0.6-1.3)
[2025-04-27 13:29] LABS: UREA NITROGEN BLOOD 8 mg/dL (9-23)
[2025-04-27 14:08] LABS: TROPONIN I HIGH SENSITIVITY 68 ng/L (3.0-53)
[2025-04-27] MEDS: ENOXAPARIN 80MG/0.8ML SYR SUBCUT ONE (14:21)
[2025-04-27] MEDS ORDERED: MORPHINE SULFATE 2 MG/ML INJ (NOT FOR IM USE) IV PRN (14:30)
[2025-04-27] MEDS ORDERED: ONDANSETRON HCL 4MG/2ML INJ IV PRN (14:30)
[2025-04-27] MEDS ORDERED: ZOLPIDEM TARTRATE 5MG TABLET PO PRN (14:30)
[2025-04-27] MEDS ORDERED: MAGNESIUM/ALUMINUM HYDROXIDE/SIMETHICONE 30ML UDC PO PRN (14:30)
[2025-04-27] MEDS: CHLORDIAZEPOXIDE 25MG CAPSULE PO ONE (14:35)
[2025-04-27] MEDS: CITALOPRAM HYDROBROMIDE 10MG TABLET PO SCH (15:35)
[2025-04-27] MEDS: CEFTRIAXONE 1GM/50ML 50 ML IV SCH (15:35)
[2025-04-27] MEDS: VANCOMYCIN 2GM PMX (XELLIA) 400 ML IV SCH (16:00)
[2025-04-27 16:34] LABS: CLARITY URINE CLEAR (CLEAR); COLOR URINE YELLOW (YELLOW); GLUCOSE URINE NEGATIVE (NEGATIVE); KETONES URINE NEGATIVE (NEGATIVE); LEUKOCYTE ESTERASE URINE NEGATIVE (NEGATIVE); NITRITE URINE NEGATIVE (NEGATIVE); OCCULT BLOOD URINE NEGATIVE (NEGATIVE); PH URINE 6.0 (4.5-8.0); PROTEIN URINE NEGATIVE (NEGATIVE); SPECIFIC GRAVITY URINE 1.008 (1.005-1.030); UROBILINOGEN URINE 1.0 E.U./dL (0.2-1.0)
[2025-04-27 17:04] LABS: *AMPHETAMINES SCREEN URINE NEGATIVE (NEGATIVE); *BARBITURATES SCREEN URINE NEGATIVE (NEGATIVE); *BENZODIAZEPINES SCREEN URINE NEGATIVE (NEGATIVE); *COCAINE SCREEN URINE NEGATIVE (NEGATIVE); CANNABINOID URINE SCREEN NEGATIVE (NEGATIVE); ECSTASY MDMA SCREEN URINE NEGATIVE (NEGATIVE); METHADONE URINE SCREEN NEGATIVE (NEGATIVE); OPIATES URINE SCREEN NEGATIVE (NEGATIVE); PHENCYCLIDINE URINE SCREEN NEGATIVE (NEGATIVE)
[2025-04-27] MEDS: ASPIRIN 81MG TABLET PO SCH (17:55)
[2025-04-27] MEDS: HYDROCODONE/ACETAMINOPHEN 5/325MG TABLET PO PRN (17:56)
[2025-04-27] MEDS: FUROSEMIDE 40MG/4ML VIAL IVP SCH (17:56)
[2025-04-27] MEDS: ENOXAPARIN 60MG/0.6ML SYR SUBCUT SCH (17:56)
[2025-04-27 18:00] VITALS: BP 117/55; PULSE 118; RESP 20; TEMP 36.3; O2SAT 96
[2025-04-27 18:45] LABS: INR 1.0
[2025-04-27 20:00] VITALS: BP 110/60; PULSE 120; RESP 20; TEMP 36.9; O2SAT 100
[2025-04-27] MEDS: VANCOMYCIN 1G PREMIX 200 ML IV SCH (23:20)
[2025-04-28] VITALS (7 sets, daily range): BP systolic 116–155; BP diastolic 57–79; PULSE 97–101; RESP 18–20; TEMP 36.5–37.1; O2SAT 93–98
[2025-04-28 00:56] LABS: TROPONIN I HIGH SENSITIVITY 69 ng/L (3.0-53)
[2025-04-28] MEDS: ENOXAPARIN 150MG/ML SYR SUBCUT SCH (06:01)
[2025-04-28] MEDS ORDERED: ENOXAPARIN 40MG/0.4ML SYR SUBCUT SCH (09:00)
[2025-04-28] MEDS: PANTOPRAZOLE SODIUM 40 MG/VIAL IV SCH (09:33)
[2025-04-28] MEDS: AMLODIPINE 10MG TABLET PO SCH (09:34)
[2025-04-28] MEDS ORDERED: MORPHINE SULFATE 4 MG/ML INJ (FOR IV/IM USE) IV PRN (11:45)
[2025-04-28] MEDS: CEFTRIAXONE 1GM/50ML 50 ML IV SCH (16:22)
[2025-04-28] MEDS: VANCOMYCIN 1.5GM PMX (XELLIA) 300 ML IV SCH (17:13)
[2025-04-29] VITALS: BP 132/62; PULSE 98; RESP 20; TEMP 36.4; O2SAT 99
[2025-04-29 04:00] VITALS: BP 159/100; PULSE 110; RESP 20; TEMP 36.9; O2SAT 99
[2025-04-29] MEDS: CLONIDINE 0.1MG TABLET PO PRN (05:19)
[2025-04-29] MEDS ORDERED: DIPHENHYDRAMINE 50MG/ML VIAL ONE (07:33)
[2025-04-29] MEDS ORDERED: LIDOCAINE HCL 1% 20ML VIAL ONE (07:33)
[2025-04-29] MEDS ORDERED: HEPARIN 1000 UNITS/ML 10ML ONE (07:33)
[2025-04-29] MEDS ORDERED: IODIXANOL 320MG/ML 100 ML BOTTLE IV ONE (07:33)
[2025-04-29] MEDS ORDERED: VERAPAMIL HCL 2.5 MG/1 ML 2ML VIAL IV ONE (07:33)
[2025-04-29] MEDS ORDERED: ATROPINE SULFATE 1MG/10ML SYR ONE (07:34)
[2025-04-29] MEDS ORDERED: EPINEPHRINE 0.1MG/ML (1:10,000) 10ML SYR ONE (07:34)
[2025-04-29 08:00] VITALS: BP 126/83; PULSE 103; RESP 22; TEMP 36.7; O2SAT 98
[2025-04-29 08:28] LABS: BASOPHILS % 0.1 % (0.0-2.0); EOSINOPHILS % 3.4 % (0.0-5.0); HEMATOCRIT. 33.9 % (42.0-52.0); HEMOGLOBIN. 11.2 g/dL (14.0-18.0); LYMPHOCYTES % 9.8 % (20.0-50.0); MEAN PLATELET VOLUME 7.0 fl (7.4-10.4); MONOCYTES % 9.4 % (2.0-8.0); NEUTROPHILS % 77.3 % (40.0-76.0); PLATELET 290 x1000/uL (130-400); RED BLOOD CELL COUNT 3.72 mill/uL (4.7-6.1); RED CELL DISTRIBUTION WIDTH 14.0 % (11.6-14.6)
[2025-04-29 08:43] LABS: CREATININE 0.8 mg/dL (0.6-1.3); UREA NITROGEN BLOOD 8 mg/dL (9-23)
[2025-04-29] MEDS ORDERED: LISI10TA26 MT (09:38)
[2025-04-29] MEDS ORDERED: METO25TA6 MT (09:38)
[2025-04-29] MEDS ORDERED: ASPI-1160 PO (09:38)
[2025-04-29] MEDS ORDERED: FURO-151 MT (09:38)
[2025-04-29] MEDS: LISINOPRIL 10MG TABLET PO SCH (09:45)
[2025-04-29 12:00] VITALS: BP 136/92; PULSE 104; RESP 20; TEMP 36.6; O2SAT 97
[2025-04-29] MEDS: ACETAMINOPHEN 325MG TABLET PO PRN (15:59)
[2025-04-29 16:00] VITALS: BP 124/64; PULSE 101; RESP 18; TEMP 36.6; O2SAT 96
[2025-04-29 20:00] VITALS: BP 113/68; PULSE 102; RESP 18; TEMP 36.4; O2SAT 98
[2025-04-29] MEDS: METOPROLOL TARTRATE 25MG TABLET PO SCH (20:23)
[2025-04-30] VITALS: BP 106/56; PULSE 94; RESP 18; TEMP 36.6; O2SAT 99
[2025-04-30 04:00] VITALS: BP 143/84; PULSE 97; RESP 18; TEMP 36.6; O2SAT 97
[2025-04-30 07:04] LABS: BASOPHILS % 0.1 % (0.0-2.0); EOSINOPHILS % 5.3 % (0.0-5.0); HEMATOCRIT. 32.9 % (42.0-52.0); HEMOGLOBIN. 10.6 g/dL (14.0-18.0); LYMPHOCYTES % 16.9 % (20.0-50.0); MEAN PLATELET VOLUME 6.8 fl (7.4-10.4); MONOCYTES % 12.9 % (2.0-8.0); NEUTROPHILS % 64.8 % (40.0-76.0); PLATELET 296 x1000/uL (130-400); RED BLOOD CELL COUNT 3.63 mill/uL (4.7-6.1); RED CELL DISTRIBUTION WIDTH 13.7 % (11.6-14.6)
[2025-04-30 07:16] LABS: CREATININE 0.8 mg/dL (0.6-1.3)
[2025-04-30 07:17] LABS: UREA NITROGEN BLOOD 12 mg/dL (9-23)
[2025-04-30 08:00] VITALS: BP 148/86; PULSE 97; RESP 18; TEMP 37.2; O2SAT 98
[2025-04-30 12:00] VITALS: BP 147/93; PULSE 90; RESP 18; TEMP 37.1; O2SAT 18
[2025-04-30 13:46] VITALS: BP 147/93; PULSE 90; RESP 18; TEMP 98.7
== END 2025-04-30 15:20 | disposition home or self-care (01) | DRG 190 ==
LOC: ER 11:32 → EDBEDREQ 11:56 → 7WST 13:59 → EDBEDREQTM 14:01 → EDBEDREQ 14:01
PROVIDERS: ADMIT Internal Medicine; ATTEND Internal Medicine
DX: I21.4 Non-ST elevation (NSTEMI) myocardial infarction (principal); L89.893 Pressure ulcer of other site, stage 3; I11.0 Hypertensive heart disease with heart failure; Z68.43 Body mass index [BMI] 50.0-59.9, adult; D64.9 Anemia, unspecified; I50.9 Heart failure, unspecified; E66.9 Obesity, unspecified; L30.9 Dermatitis, unspecified; R32 Unspecified urinary incontinence; L85.3 Xerosis cutis; R00.0 Tachycardia, unspecified; Z99.3 Dependence on wheelchair
CPT/HCPCS: 36415; 71045; 80048; 80202; 80305; 81003; 83880; 84484; 85025; 93005; 93306; 93970; 97162; 99285; A4606; J0461; J0696; J1200; J1644; J1650; J1938; J2003; J2470; J3373; J3490; Q9967